=== PATIENT | male | born 1940 | race Caucasian/White ===

== ENCOUNTER 2017-03-01 15:55 | Emergency (ER) | payer OTHER ==
[~2017-03-01] VITALS: Ht 172.7 cm; Wt 99.0 kg
[2017-03-01] MEDS ORDERED: GLIP5 PO (16:02)
[2017-03-01] MEDS ORDERED: ATOR20TA86 PO (16:02)
[2017-03-01] MEDS ORDERED: METF500T4 PO (16:02)
[2017-03-01 16:12] LABS: GLUCOSE,POINT OF CARE 124 MG/DL (70-110)
[2017-03-01] MEDS ORDERED: OXYMETAZOLINE HCL 0.05% 15 ML NASAL SPRAY NASAL ONE (18:30)
[2017-03-01 21:22] VITALS: BP 121/80
== END 2017-03-01 22:09 | disposition home or self-care (01) ==
LOC: EMS 15:58
DX: R04.0 Epistaxis (principal)
CPT/HCPCS: 30901; 82962; 99282; 99284